=== PATIENT | male | born 1975 | race Caucasian/White ===

== ENCOUNTER 2017-06-21 16:36 | Emergency (ER) | payer MEDICARE, MEDICAID ==
--- NOTE | 2017-06-21 16:50 | ED Physician Chart ---
ED Chief Complaint/HPI - Patient Information Date Seen:: 06/21/17 Time Seen:: 17:00 Chief Complaint:: left forearm trauma History of Present Illness:: Patient was sent here for splinting of the left forearm fracture. Dr. Dotson wants the patient returned to his facility after the splint is placed Allergies:: Allergies Allergy/AdvReac Type Severity Reaction Status Date / Time plastic Allergy Unknown Uncoded 05/30/13 12:23 Historian:: Other Review:: Transfer documents Reviewed ED Review of Systems - Review of Systems General/Constitutional: No fever, No chills Skin: No skin lesions Head: No headache Eyes: No loss of vision ENT: No earache Neck: No neck pain Cardio Vascular: No chest pain, No palpitations Pulmonary: No SOB GI: No nausea, No vomiting G/U: No dysuria, No hematuria, No nacturia Musculoskeletal: Bone or joint pain Endocrine: No polyuria, No polydipsia Hematopoietic: No bruising, No lymphadenopathy Allergic/Immuno: No urticaria Neurological: No syncope, No focal symptoms ED Past Medical History - Past Medical History Past Medical History: Seizures, Other (profound mental retardation; cerebral palsy; microcephaly; osteoporosis; peptic ulcer disease; hiatal hernia; anemia) Family History: Other (unavailable) Social History: Care Facility Surgical History: PEG/GTube Psychiatricy History: Other (severe mental retardation) Medication: Reviewed ED Physical Exam - Physical Examination General/Constitutional: Well-developed, well-nourished, Alert, No distress Head: Atraumatic Eyes: Lids, conjuctiva normal, PERRL Skin: Nl inspection, No rash, No skin lesions, No ecchymosis, Well hydrated, No lymphadenopathy ENMT: External ears, nose nl Neck: No nuchal rigidity Respiratory: Nl effort/Exclusion, Clear to Auscultation Cardio Vascular: RRR GI: No tenderness/rebounding/guarding, Nondistended, No mass/bruits : No CVA tenderness Extremities: Normal digits & nails Neuro/Psych: No focal deficits Misc: Normal back, No paraspinal tenderness ED Labs/Radiology/EKG Results - Radiology Results Results: Left forearm: Fracture of distal ulna ED Assessment - Procedures Procedures:: 3 inch Ortho-Glass used for sugar tong splint left forearm ED Septic Shock - . Is Septic Shock (SBP<90, OR Lactate>4 mmol\L) present?: No ED Reassessment (Disposition) - Reassessment Reassessment Condition:: Improved - Diagnosis Diagnosis:: Fracture distal ulna left forearm - Patient Disposition Discharge/Transfer:: Nurse Assistant Care - SNF Spoke to:: Harris Dotson Condition at Disposition:: Stable, Improved
--- NOTE | 2017-06-22 08:07 | Diagnostic Imaging Report ---
Left forearm 2 views Indication: Fracture Comparison: none Findings: There is a displaced oblique fracture of the distal shaft of the ulna. Osteopenia is noted. No evidence of dislocation. Evaluation of the elbow joint is limited on this examination. Mild soft tissue swelling of the distal ulnar region is noted. Impression: Oblique fracture of the distal shaft of the ulna with mild displacement.
== END 2017-06-21 18:35 | disposition home or self-care (01) ==
LOC: ER 16:36
DX: S52.202A Unspecified fracture of shaft of left ulna, initial encounter for closed fracture (principal); X58.XXXA Exposure to other specified factors, initial encounter; Y93.89 Activity, other specified; Y92.89 Other specified places as the place of occurrence of the external cause; Y99.8 Other external cause status
CPT/HCPCS: 73090-TC-LT; Z7502